=== PATIENT | female | born 1995 | race American Indian/Alaskan Native ===

== ENCOUNTER 2020-01-24 11:48 | Outpatient (CLI) | payer MEDICAID ==
[2020-01-24 12:42] LABS: Basophils # (Auto) 0.2 K/mm3 (0.0-0.1); Basophils % (Auto) 1.3 % (0.0-1.8); Eosinophils # (Auto) 0.2 K/mm3 (0.0-0.4); Eosinophils % (Auto) 1.4 % (0.0-4.3); Hemoglobin 11.1 gm/dl (10.1-14.3); Lymphocytes # (Auto) 2.3 K/mm3 (1.2-5.4); Lymphocytes % (Auto) 18.3 % (13.4-35.0); Mean Corpuscular HGB Conc 33 % (30-34); Mean Corpuscular Volume 76 fl (79-97); Monocytes # (Auto) 0.5 K/mm3 (0.0-0.8); Monocytes % (Auto) 4.3 % (0.0-7.3); Platelet Count 401 K/mm3 (140-440); Red Blood Count 4.45 M/mm3 (3.65-5.03); Red Cell Distribution Width 15.5 % (13.2-15.2)
[2020-01-24 12:55] LABS: % Iron Saturation 19.49 %; Alanine Aminotransferase 7 units/L (7-56); Albumin 3.4 g/dL (3.9-5); Blood Urea Nitrogen 11 mg/dL (7-17); Calcium 9.2 mg/dL (8.4-10.2); Chol/HDL Ratio 2.96 %; HDL Cholesterol 62 mg/dL (40-59); Hemolysis Index 0; Iron 69 ug/dL (37-170); LDL Cholesterol,Direct 117 mg/dL (50-130); Total Iron Binding Capacity 354 mcg/dL (250-450)
[2020-01-24 12:56] LABS: BUN/Creatinine Ratio 22
[2020-01-26 15:11] LABS: Vitamin D, 25-OH, D2 <4 ng/mL
== END 2020-01-24 11:49 | disposition home or self-care (01) ==
LOC: LAB 11:48
PROVIDERS: ATTEND Internal Medicine
DX: E11.9 Type 2 diabetes mellitus without complications (principal); K30 Functional dyspepsia; E66.01 Morbid (severe) obesity due to excess calories
CPT/HCPCS: 36415; 80053; 80061; 82306; 82607; 82728; 83036; 83550; 84443; 85025; 85730

== ENCOUNTER 2020-04-15 08:10 | Day surgery (SDC) | payer MEDICAID ==
[~2020-04-15 08:10] MED LIST: SODIUM CHLORIDE 0.9% 1000 ML 1,000 ML IV SCH
--- NOTE | 2020-04-15 09:06 | Anesthesia Day of Surgery ---
Anesthesia Day of Surgery - Day of Surgery Patient Examined: Yes Patient H&P Reviewed: Yes Patient is NPO: Yes
[2020-04-15] MEDS ORDERED: MIDAZOLAM 2 MG/2 ML INJ ONE (09:11)
--- NOTE | 2020-04-15 09:12 | Anesthesia Consultation ---
Anesthesia Consult and Med Hx Date of service: 04/15/20 - Airway Anesthetic Teeth Evaluation: Good ROM Head & Neck: Adequate Mental/Hyoid Distance: Adequate Mallampati Class: Class II Intubation Access Assessment: Good - Pre-Operative Health Status ASA Pre-Surgery Classification: ASA3 Proposed Anesthetic Plan: MAC - Pulmonary Hx Smoking: No - Cardiovascular System Hx Hypertension: Yes (In the past. Anxious--> BP high now) - Hematic Hx Sickle Cell Disease: No - Other Systems Hx Obesity: Yes
[2020-04-15] MEDS ORDERED: propofoL 200 MG/20 ML VIAL IV ONE ×2 (09:26→09:35)
--- NOTE | 2020-04-15 09:45 | Short Stay Summary ---
Short Stay Documentation Date of service: 04/15/20 - History H&P: obtained from office - Allergies and Medications Current Medications: Allergies pine nut Allergy (Verified 09/14/14 00:35) Swelling shellfish derived Allergy (Verified 09/14/14 00:35) Nausea Active Medications Sodium Chloride (Nacl 0.9% 1000 Ml) 1,000 mls @ 50 mls/hr IV DIRECT ZAID Last Admin: 04/15/20 09:10 Dose: 50 mls/hr Documented by: Midazolam HCl (Midazolam 2 Mg/2 Ml Inj) 2 mg IV PREOP NR Stop: 04/15/20 23:59 Last Admin: 04/15/20 09:20 Dose: 2 mg Documented by: - Brief post op/procedure progress note Date of procedure: 04/15/20 Findings: see dictation Estimated blood loss: none Pathology: list (antral biopsies for h. pylori) Specimen disposition: to lab Condition: stable - Disposition Condition at discharge: Good - Discharge Diagnoses (1) GERD (gastroesophageal reflux disease) Status: Acute Short Stay Discharge Plan Activity: other (no driving for 24 hours) Weight Bearing Status: Full Weight Bearing Diet: regular Follow up with: KYLAH CRZU MD [Primary Care Provider] - 7 Days
--- NOTE | 2020-04-15 09:48 | Operative Report ---
Operative Report Operative Report: Date of procedure: 04/15/2020 Procedure: Esophagogastroduodenoscopy with biopsies for H. pylori in the antrum. Preprocedure diagnosis: Gastroesophageal reflux disease. Post procedure diagnosis: Mild erosive antral gastritis. Lax LES Endoscopist: Dr. Hutchinson Anesthesia: Monitored anesthesia care per anesthesia department Medications: Propofol per anesthesia. Versed 2 mg IV given in preop for anxiety. Estimated blood loss: 0. After careful discussion of the nature and purpose of the procedure as well as details the technique risks benefits and alternatives consent was obtained. The patient was placed in the left lateral decubitus position and medicated per anesthesia. The tip of the Appwapp EQ 570 video scope was passed per orum under direct vision into the esophagus and advanced into the stomach and descending duodenum. The descending duodenum the duodenal bulb and pylorus were sym metrical and normal. The scope was withdrawn into the stomach and the stomach then gently insufflated with air. The antrum revealed scattered shallow erosions. Biopsies were taken for H. pylori assessment. The stomach was further insufflated and the scope was then retroflexed and partially withdrawn. The cardia, fundus, and body of the stomach were within normal limits and easily distensible.The scope was then withdrawn in the forward position. The esophagogastric junction was at 38 cm. The LES appeared lax. The Z-line was sharp. The esophageal body was normal throughout. The procedure was was well tolerated and the patient was observed in recovery. Impressions: Mild erosive antral gastritis. Lax appearing LES. No hiatus hernia or significant esophagitis. Plan: Continue acid suppression therapy. Await pathology to exclude H. pylori. The patient will call the office in 1 week for discussion. Electronically signed: Hector Hutchinson MD
[2020-04-15] MEDS ORDERED: MIDAZOLAM 2 MG/2 ML INJ IV NR (10:00)
[2020-04-15 10:46] VITALS: BP 167/94
--- NOTE | 2020-04-15 16:25 | Post Anesthesia Evaluation ---
- Post Anesthesia Evaluation Patient Participated: Yes Airway Patent: Yes Stable Respiratory Function: Yes Nausea/Vomiting: No Temp > 96.8F: Yes Pain Manageable: Yes Adequeate Hydration: Yes Anesthesia Complications: No Block Receding Appropriately: Not Applicable Patient on Ventilator: No
== END 2020-04-15 10:55 | disposition home or self-care (01) ==
LOC: GIO 08:10
PROVIDERS: ATTEND Internal Medicine Gastroenterology
DX: K21.00 Gastro-esophageal reflux disease with esophagitis, without bleeding (principal); K29.70 Gastritis, unspecified, without bleeding; I10 Essential (primary) hypertension; E66.9 Obesity, unspecified; Z68.43 Body mass index [BMI] 50.0-59.9, adult; Z91.010 Allergy to peanuts; Z79.899 Other long term (current) drug therapy; Z91.013 Allergy to seafood
CPT/HCPCS: 43239; 81025; 88305; 88342; J2250; J2704; J7030

== ENCOUNTER 2020-10-06 07:30 | Inpatient (IN) | payer MEDICAID ==
[2020-10-02 13:04] LABS: Hematocrit 35.1 % (30.3-42.9); Hemoglobin 11.5 gm/dl (10.1-14.3); Mean Corpuscular HGB Conc 33 % (30-34); Mean Corpuscular Volume 79 fl (79-97); Platelet Count 321 K/mm3 (140-440); Red Blood Count 4.42 M/mm3 (3.65-5.03); Red Cell Distribution Width 15.2 % (13.2-15.2)
--- NOTE | 2020-10-02 13:10 | Anesthesia Consultation ---
Anesthesia Consult and Med Hx Date of service: 10/06/20 - Airway Anesthetic Teeth Evaluation: Good ROM Head & Neck: Adequate Mental/Hyoid Distance: Adequate Mallampati Class: Class II Intubation Access Assessment: Good - Pre-Operative Health Status ASA Pre-Surgery Classification: ASA3 Proposed Anesthetic Plan: General - Pulmonary Hx Smoking: No Hx Respiratory Symptoms: No (+2FS. Normal PFTs) Hx Sleep Apnea: No - Cardiovascular System Hx Hypertension: Yes Hx Coronary Artery Disease: No (ETT negative) - Central Nervous System Hx Psychiatric Problems: No - Gastrointestinal Hx Gastroesophageal Reflux Disease: Yes (Occasional; was greater during ) - Endocrine Hx Non-Insulin Dependent Diabetes: No - Hematic Hx Sickle Cell Disease: No - Other Systems Hx Cancer: No Hx Obesity: Yes
[2020-10-02 13:20] LABS: Alanine Aminotransferase 9 units/L (7-56); Albumin 3.7 g/dL (3.9-5); Blood Urea Nitrogen 11 mg/dL (7-17); Hemolysis Index 0
[2020-10-02 13:36] LABS: BUN/Creatinine Ratio 22
[~2020-10-06 07:30] MED LIST changes: +ACETAMINOPHEN IV 1,000 MG/100 ML BOTTLE IV NR; +BUPIVACAINE/PF (0.25%) 2.5 MG/ML 30 ML VIAL INFILTRATI ONE; +ENOXAPARIN 40 MG/0.4 ML INJ SUB-Q NR; +GABAPENTIN 500 MG/10 ML ORAL LIQD PO NR; +LIDOCAINE (2%) 20 MG/1 ML VIAL 20 ML MDV INFILTRATI ONE; +MIDAZOLAM 2 MG/2 ML INJ IV NR; +SCOPOLAMINE TRANSDERMAL PATCH 72 HR TD NR; -SODIUM CHLORIDE 0.9% 1000 ML 1,000 ML IV SCH; +SODIUM CHLORIDE 0.9% IRR 1,500 ML BOTTLE IR ONE; +methOCARBAMOL 1,000 MG in SODIUM CHLORIDE 0.9% 250ML 250 ML IV NR; +metroNIDAZOLE/NS 500 MG/100 ML 500 MG/100 ML BAG IV NR
--- NOTE | 2020-10-06 09:15 | Anesthesia Day of Surgery ---
Anesthesia Day of Surgery - Day of Surgery Patient Examined: Yes Patient H&P Reviewed: Yes Patient is NPO: Yes
[2020-10-06] MEDS: LACTATED RINGERS 1,000 ML IV SCH (09:48)
[2020-10-06] MEDS ORDERED: SCOPOLAMINE TRANSDERMAL PATCH 72 HR TD SCH (10:00)
[2020-10-06] MEDS ORDERED: LIDOCAINE MPF (2%) 20 MG/1 ML VIAL 5 ML ONE (11:25)
[2020-10-06] MEDS ORDERED: ROCURONIUM 50 MG/5 ML INJ IV ONE (11:25)
[2020-10-06] MEDS ORDERED: KETAMINE/STERILE WATER 50 MG/ML SYRINGE ONE ×2 (11:26→13:39)
[2020-10-06] MEDS ORDERED: MAGNESIUM SULFATE 4 GM/100 ML BAG IV ONE (11:27)
[2020-10-06] MEDS ORDERED: PHENYLEPHRINE/NS 1,000 MCG/10 ML SYRINGE (OR USE) IV ONE (11:30)
[2020-10-06] MEDS ORDERED: BUPIVACAINE/PF (0.25%) 2.5 MG/ML 30 ML VIAL INFILTRATI ONE ×2 (11:32→12:44)
[2020-10-06] MEDS ORDERED: LIDOCAINE 1%/EPINEPHRINE 1:100,000 VIAL (20 ML) INFILTRATI ONE (11:33)
[2020-10-06] MEDS ORDERED: MIDAZOLAM 2 MG/2 ML INJ ONE (11:42)
[2020-10-06] MEDS ORDERED: SODIUM CHLORIDE 0.9% IRRIG SOLN 2000 ML IR ONE (12:44)
[2020-10-06] MEDS ORDERED: SODIUM CHLORIDE 0.9% IRR 1,500 ML BOTTLE IR ONE (12:44)
[2020-10-06] MEDS ORDERED: LIDOCAINE 2%/EPINEPHRINE 1:100,000 VIAL (20 ML) INFILTRATI ONE (12:44)
[2020-10-06] MEDS ORDERED: SUGAMMADEX SODIUM 200 MG/2 ML VIAL IV ONE (12:56)
[2020-10-06] MEDS ORDERED: propofoL 200 MG/20 ML VIAL IV ONE ×3 (13:01→13:44)
[2020-10-06] MEDS ORDERED: HYDROmorphone 1 MG/1 ML INJ ONE (14:44)
[2020-10-06] MEDS: HYDROmorphone 1 MG/1 ML INJ IV PRN ×3 (14:45→15:50)
[2020-10-06] MEDS ORDERED: MORPHINE 2 MG/1 ML INJ IV PRN (15:09)
[2020-10-06] MEDS ORDERED: SIMETHICONE 80 MG CHEW TAB PO PRN (15:09)
[2020-10-06] MEDS ORDERED: HYDROmorphone 1 MG/1 ML INJ IV PRN (15:09)
[2020-10-06] MEDS ORDERED: ONDANSETRON 4 MG/2 ML INJ IV PRN (15:09)
[2020-10-06] MEDS ORDERED: METOCLOPRAMIDE 10 MG/2 ML INJ IV PRN (15:09)
[2020-10-06] MEDS ORDERED: hydrALAZINE 20 MG/1 ML INJ IV PRN (15:09)
[2020-10-06] MEDS ORDERED: HYDROcodone/Acetaminophen 7.5-325MG-15ML ORAL LIQD PO PRN (15:09)
[2020-10-06] MEDS ORDERED: LACTATED RINGERS 1,000 ML IV SCH (15:15)
--- NOTE | 2020-10-06 15:20 | Operative Report ---
Operative Report Operative Report: DATE OF PROCEDURE: 10/06/2020 SURGEON: Robinson Gaines M.D. BIOMEDICAL EQUIPMENT SUPPORT SPECIALIST: Angel Colunga CSA MD PREOPERATIVE DIAGNOSIS: Morbid obesity. POSTOPERATIVE DIAGNOSES: Morbid obesity PROCEDURES PERFORMED: 1. Laparoscopic gastric bypass. 2. EGD. ANESTHESIA: General endotracheal tube intubation, TAP block SPECIMENS: None. ESTIMATED BLOOD LOSS: Less than 20 mL. FINDINGS: Normal anatomy. COMPLICATIONS: None. INDICATION: Ms. Meek is a 25-year-old female with history of morbid obesity and htn who is here for bariatric surgery for weight loss. She signed informed consent and expressed understanding of risks and benefits. DESCRIPTION OF PROCEDURE: Patient was brought to the OR suite, laid in supine position. Bilateral lower extremity SCDs were placed. General anesthesia was induced via successful endotracheal tube intubation. Patient's abdomen was prepped and draped in sterile fashion. A veress needle was used to insuflate the abdomen to a pressure of 18 mmHg in the left subcostal region. Using Optiview technique, a 5- mm trocar was placed into the abdominal cavity under direct vision just superior and to the left of the umbilicus. There was noted to be no gross injury to any intraabdominal structures. 12 mm in the right mid abdomen mid clavicular line and three 5-mm trocars in the right upper quadrant, epigastric areas were placed under direct visualization. At this time, the ligament of Treitz identified and followed down approximately 75 cm and the jejunum was transected. The distal segment of jejunum was then traced for approximately 100 cm and a stable [id number] jejunojejunostomy was performed. The common enterotomy was closed with 2 firings of the endoscopic stapler. The mesenteric defect was closed with running Surgidac suture. This anastomosis was found to be patent without kink, obstruction or bleeding. At this time, the patient was placed in steep reverse Trendelenburg position. A liver retractor was placed through the epigastric port to elevate the left lateral lobe of the liver. A small gastric pouch was formed with serial firings of the blue load on a laparoscopic stapler. The Dano limb was then brought in an antegastric antecolic fashion and secured with 2 stay sutures to the gastric pouch. After this, the enterotomies were made with Harmonic scalpel, and a [id number] stapled gastrojejunostomy was performed with a mechanical stapler. After this, a 2-layer running closure using absorbable V-lock suture were done, the first being mucosal approximation prior to completion of the first layer. Then I passed and an EGD scope beyond the anastomosis to act as a stent. The first layer was completed, the second was then performed. After this, the EGD was retracted slightly. A bowel clamp was placed in a proximal Dano limb. The anastomosis was submerged under saline. Via intraluminal EGD insufflation, there was noted be no bubbles in the saline indicating an airtight anastomosis. There was noted to be no obstruction or bleeding intraluminally in the pouch or the anastomosis. At this time, the scope was removed. The saline was aspirated. Tiseel was placed over the anastomosis. All trocars were removed under direct visualization and the abdomen was then desufflated. A TAP block was performed using a total of 60 mL 0.25% Marcaine along bilateral mid axillary lines starting at the subcostal margin at the level of the umbilicus. The 12mm trocar site was closed using POD and a Christopher T homason device for fear that after surgery it become incarcerated. The skin incisions were closed with 4-0 Monocryl followed by Dermabond dressings. Patient was awoken and taken to recovery in stable condition. All counts were correct.
--- NOTE | 2020-10-06 17:47 | Post Anesthesia Evaluation ---
- Post Anesthesia Evaluation Patient Participated: Yes Airway Patent: Yes Stable Respiratory Function: Yes Nausea/Vomiting: No Temp > 96.8F: Yes Pain Manageable: Yes Adequeate Hydration: Yes Anesthesia Complications: No
[2020-10-06] MEDS ORDERED: diphenhydrAMINE 50 MG/ML VIAL IV NR (19:11)
[2020-10-06] MEDS ORDERED: FAMOTIDINE 20 MG/2 ML INJ IV NR (19:11)
[2020-10-06] MEDS: ACETAMINOPHEN IV 1,000 MG/100 ML BOTTLE IV SCH (21:32)
[2020-10-06] MEDS: KETOROLAC 30 MG/1 ML INJ IV SCH (21:43)
[2020-10-06] MEDS: ceFAZolin/NS 1 GM/50 ML 1 GM/50 ML BAG IV SCH (21:43)
[2020-10-06] MEDS: metroNIDAZOLE/NS 500 MG/100 ML 500 MG/100 ML BAG IV SCH (21:44)
[2020-10-07] MEDS: ACETAMINOPHEN IV 1,000 MG/100 ML BOTTLE IV SCH ×2 (00:02→03:47)
[2020-10-07] MEDS: KETOROLAC 30 MG/1 ML INJ IV SCH ×3 (01:51→10:19)
[2020-10-07] MEDS: metroNIDAZOLE/NS 500 MG/100 ML 500 MG/100 ML BAG IV SCH ×2 (03:43→10:18)
[2020-10-07] MEDS: ceFAZolin/NS 1 GM/50 ML 1 GM/50 ML BAG IV SCH (03:46)
[2020-10-07] MEDS: PANTOPRAZOLE 40 MG INJ IV SCH ×2 (03:47→10:19)
[2020-10-07 04:53] LABS: Basophils % (Auto) 0.2 % (0.0-1.8); Hematocrit 34.9 % (30.3-42.9); Hemoglobin 11.7 gm/dl (10.1-14.3); Lymphocytes # (Auto) 1.4 K/mm3 (1.2-5.4); Lymphocytes % (Auto) 11.9 % (13.4-35.0); Mean Corpuscular HGB Conc 33 % (30-34); Mean Corpuscular Volume 80 fl (79-97); Monocytes # (Auto) 0.8 K/mm3 (0.0-0.8); Monocytes % (Auto) 6.8 % (0.0-7.3); Platelet Count 366 K/mm3 (140-440); Red Blood Count 4.39 M/mm3 (3.65-5.03); Red Cell Distribution Width 15.7 % (13.2-15.2)
[2020-10-07 05:09] LABS: Alanine Aminotransferase 15 units/L (7-56); Albumin 3.4 g/dL (3.9-5); Blood Urea Nitrogen 8 mg/dL (7-17); Calcium 9.5 mg/dL (8.4-10.2); Hemolysis Index 0
[2020-10-07 05:12] LABS: BUN/Creatinine Ratio 16
[2020-10-07] MEDS: LACTATED RINGERS 1,000 ML IV SCH (06:31)
--- OUTSIDE RECORDS SUMMARY | 2020-10-07 06:51 | External Medical Summary ---
:1995 Author Organization [facility], [facility] Address [address] [place] [address] Care Team Providers Name Role Phone Robinson Gaines Unavailable [phone] PROBLEMS Type Condition ICD9-CM GUC52-[id number] Onset Condition W/U Status Risk SNOM ED Notes Code Code Dates Status Code Problem Dietary Z71.3 Active confirmed 141690730 counseling and surveillance Problem Essential I10 Active confirmed 08481745 (primary) hypertension Problem Functional K30 Active confirmed 2801395 dyspepsia Problem Gastro-esopha K21.9 Active confirmed 780966 005 geal reflux disease without esophagitis Problem Sleep G47.9 Active confirmed 00285883 disorder, unspecified Problem Major F32.9 Active confirmed 21896081 depressive disorder, single episode, unspecified Problem Morbid E66.01 Active confirmed 401135423 (severe) obesity due to excess calories Problem Body mass Z68.43 Active confirmed 260596467 index [BMI] 50.0-59.9, adult ALLERGIES Allergen (clinical Drug/Non Drug Reaction Allergy Type Onset Date S tatus drug ingredient) Allergy documented on EMR peanuts shortness of Non Drug Active breath Allergy Shellfish shellfish vomiting Non Drug Active Allergy ENCOUNTERS from 1993 to 2020-10-03 Encounter Location Date Provider Diagnosis [facility] Sep, Robinson Gaines Morbi d (severe) [address] obesity due to excess of [facility] [place], [place] calorie s E66.01 [place] [address] Essential (prim beatriz) hypertension I1 0 IMMUNIZATIONS No Information SOCIAL HISTORY Sex Assigned At : Social History Observation Description Sex Assigned At Unknown REASON FOR REFERRAL from 1993 to 2020-10-03 Diagnosis 1 Morbid (severe) obesity due to excess calories (E66.01) Diagnosis 2 Essential (primary) hyperten doroteo (I10) Diagnosis 3 Functional dyspepsia (K30) Diagnosis 4 Sleep disorder, unspecified (G47.9) Diagnosis 5 Major depressive disorder, s edelmira episode, unspecified (F32.9) Diagnosis 6 Body mass index [BMI] 50.0-5 9.9, adult (Z68.43) Diagnosis 7 Gastro-esophageal reflux dis ease without esophagitis (K21.9) Diagnosis 8 Dietary counseling and surve illance (Z71.3) Diagnosis 9 Pain in unspecified knee (M2 5.569) Referral Organization [facility] Referring Provider First Name Robinson Referring Provider Last Name Liana Referring Provider Specialty Surgery Referred Provider [facility], - Referral Priority Routine VITAL SIGNS Height 64 in Sep, Weight 297.7 lbs Sep, Temperature 97.8 degrees Fahrenheit Sep, BMI 51.09 kg/m2 Sep, Blood pressure systolic 130 mm Hg Sep, Blood pressure diastolic 85 mm Hg Sep, MEDICATIONS Medication SIG (Take, Route, Notes Start Date End Date Status Frequency, Duration) Sprintec 28 0.25-35 1 tablet Orally Once a Active MG-MCG day for 28 day(s) HYDROcodone-Acetaminophe 15 ml as needed Orally Sep,Sep, Active n 7.5-325 MG/15ML every 6 hrs for 7 days NexIUM 40 MG 1 capsule Orally Once Sep, Active a day for 30 day(s) Labetalol HCl 200 MG 1 tablet Orally Twice Active a day for 30 day(s) Ondansetron 4 MG 1-2 tablet on the Sep, Active tongue and allow to dissolve Orally q 4-6 hours prn nausea for 30 day(s) PROCEDURES No Information RESULTS No Results REASON FOR VISIT PreOp Bypass MEDICAL (GENERAL) HISTORY Type Description Date Medical History Morbid (severe) obesity due to excess ca lories Medical History Essential (primary) hypertension Medical History Major depressive disorder, single episod e, unspecified Medical History Functional dyspepsia Medical History Sleep disorder, unspecified Medical History Body mass index [BMI] 50.0-59.9, adult Surgical History D and C 09/2017 Surgical History D and C 10/2017 Surgical History Knee repair 04/2018 Surgical History 09/11/2019 Hospitalization History as above Goals Section No Information Health Concerns No Information MEDICAL EQUIPMENT No Information MENTAL STATUS No Information FUNCTIONAL STATUS No Information ASSESSMENTS Encounter Date Diagnosis Assessment Notes Treatment Notes Treatm ent Clinical Notes Sep, Morbid (severe) An hour was spent obesity due to with patient excess calories reinforcing diet, (ICD-10 - E66.01) vitamin requirements and lifestyle education, A quiz was administered and reviewed to verify understanding of intended procedure and post operative care. Consent forms were reviewed with patient and signed answering all questions, Pre-operative labs were ordered. Sep, Essential (primary) Should resolve or hypertension greatly improve (ICD-10 - I10) with weight loss after bariatric surgery PLAN OF TREATMENT Medication Medication Name Sig Start Date Stop Date Ondansetron 4 MG 1-2 tablet on the tongue and Sep, allow to dissolve Orally q 4-6 hours prn nausea for 30 day(s) NexIUM 40 MG 1 capsule Orally Once a day Sep, for 30 day(s) HYDROcodone-Acetaminophen 15 ml as needed Orally every Sep, 2 021 Sep, 7.5-325 MG/15ML 6 hrs for 7 days Treatment Notes Assessment Notes Clinical Notes Morbid (severe) obesity due to An hour was spent with patien t excess calories reinforcing diet, vitamin requirements and lifestyle education, A quiz was administered and reviewed to verify understanding of intended procedure and post operative care. Consent forms were reviewed with patient and signed answering all questions, Pre-operative labs were ordered. Essential (primary) hypertension Should resolve or greatly i mprove with weight loss after bariatric surgery Referrals Referral Date Details Next Appt Details for surgery Reason: Provider Name:Robinson Gaines, 2020-08-3 0 07:30:00 AM, [address], [place], [address], Insurance Providers Payer Name Payer Address Payer Insured Name Patient Coverage Co verage End Phone Relationship to Start Date Rick e Insured [employer] [address] [address] [phone] [place] self /[facility] [address] [facility] [id number]
[2020-10-07] MEDS ORDERED: LOSARTAN 50 MG TAB PO SCH (10:00)
[2020-10-07] MEDS ORDERED: ENOXAPARIN 40 MG/0.4 ML INJ SUB-Q SCH (10:00)
--- NOTE | 2020-10-07 11:16 | Discharge Summary ---
Providers - Providers Date of Admission: 10/06/20 08:50 Date of discharge: 10/07/20 Attending physician: DESMOND DAVIS MD 10/06/20 15:11 Physical Therapy Evaluation and Treat [CONS] Routine Comment: Reason For Exam: post op bariatric surgery Primary care physician: KYLAH CRUZ Hospitalization Reason for admission: Observation status post laparoscopic gastric bypass Condition: Good Procedures: Laparoscopic gastric bypass Hospital course: Patient was admitted after an uneventful laparoscopic gastric bypass. She remained afebrile and stable. Her pain was controlled and she was ambulating without difficulty. She was tolerating clear liquids. She was discharged to [facility] on postoperative day 1 showing no clinical signs of leak or bleeding. Disposition: 01 HOME / SELF CARE / HOMELESS Final Discharge Diagnosis (Prints w/discharge instructions): Morbid obesity, hypertension Core Measure Documentation - Palliative Care Palliative Care/ Comfort Measures: Not Applicable - Core Measures Any of the following diagnoses?: none Exam - Constitutional Vitals: Temp Pulse Resp BP Pulse Ox 97.9 F 98 H 18 173/107 98 10/07/20 04:07 10/07/20 04:07 10/07/20 04:07 10/07/20 04:07 10/07/20 08:28 General appearance: Present: no acute distress, well-nourished, obese - Respiratory Respiratory effort: normal - Cardiovascular Heart Sounds: Present: S1 & S2 - Extremities Extremities: no ischemia - Abdominal General gastrointestinal: Present: other (Incisions clean dry and intact, appropriately tender to palpation) Plan Activity: advance as tolerated Diet: clear liquids Wound: open to air, keep clean and dry Follow up with: KYLAH CRUZ MD [Primary Care Provider] - 7 Days
[2020-10-07 17:16] VITALS: BP 148/78
== END 2020-10-07 15:40 | disposition home or self-care (01) | DRG 621 ==
LOC: 3A 08:50 → 4A 15:55
PROVIDERS: ADMIT Surgery; ATTEND Surgery
PROC: 0D164ZA Bypass Stomach to Jejunum, Percutaneous Endoscopic Approach (ICD-10-PCS; principal; 2020-10-06)
PROC: 0DJ08ZZ Inspection of Upper Intestinal Tract, Via Natural or Artificial Opening Endoscopic (ICD-10-PCS; 2020-10-06)
DX: E66.01 Morbid (severe) obesity due to excess calories (principal); Z68.43 Body mass index [BMI] 50.0-59.9, adult; Z20.822 Contact with and (suspected) exposure to COVID-19; Z91.010 Allergy to peanuts; Z91.013 Allergy to seafood; Z91.09 Other allergy status, other than to drugs and biological substances; I10 Essential (primary) hypertension; K21.9 Gastro-esophageal reflux disease without esophagitis
CPT/HCPCS: 36415; 80053; 82962; 84703; 85025; 85027; G0378; A4217; C9113; J0131; J0690; J1170; J1200; J1650; J1885; J2250; J2370; J2704; J3475; J3490; J7120; U0003

== ENCOUNTER 2021-04-01 15:22 | Emergency (ER) | payer MEDICAID ==
[2021-04-01] MEDS ORDERED: SODIUM CHLORIDE 0.9% 1000 ML 1,000 ML IV ONE (15:53)
[2021-04-01] MEDS ORDERED: SODIUM CHLORIDE 0.9% 1000 ML IV SOLN IV ONE (15:59)
[2021-04-01] MEDS ORDERED: ACETAMINOPHEN 325 MG TAB PO ONE (16:00)
[2021-04-01] MEDS ORDERED: ONDANSETRON 4 MG/2 ML INJ IV ONE (16:00)
[2021-04-01] MEDS ORDERED: methylPREDNISolone Sod Succinate 125 MG/2 ML INJ IV ONE (16:08)
--- NOTE | 2021-04-01 16:26 | Emergency Department Report ---
<REGINALD LOMELI - Last Filed: 04/01/21 19:21> - General Chief complaint: Weakness Stated complaint: WEAKNESS/TACHYCARDIA Time Seen by Provider: 04/01/21 15:52 Source: EMS Mode of arrival: Ambulatory Limitations: No Limitations - History of Present Illness Initial comments: 25-year-old female the past medical history obesity, hypertension, gastric bypass September 2020 presents to the hospital complaining of feeling unwell since receiving her implanted control device 3 days ago. Patient initially felt dizzy and weak. Yesterday she vomited and started having multiple episodes of diarrhea. Patient states she had a fever of 103.4 prior to ED arrival. She is vaccinated for COVID denies cough, shortness of breath, or dysuria. She complains of generalized intermittent abdominal cramps worse with palpation. Patient presents to the hospital with significantly elevated heart rate but denies sensation of palpitations. Pt is vaccinated for Covid Dr Gaines is her surgeon Severity scale (0 -10): 0 - Related Data Home Medications Medication Instructions Recorded Confirmed Last Taken Losartan/Hydrochlorothiazide 1 each PO DAILY 10/01/20 04/01/21 10/06/20 [Losartan-Hctz 50-12.5 mg Tab] Norgestimate-Ethinyl Estradiol 1 tab PO DAILY 10/01/20 04/01/21 Unknown [Sprintec 28 Day Tablet] Allergies Allergy/AdvReac Type Severity Reaction Status Date / Time pine nut Allergy Swelling Verified 04/01/21 15:26 shellfish derived Allergy Nausea Verified 04/01/21 15:26 lisinopril AdvReac Unknown Verified 04/01/21 15:26 ED Review of Systems Comment: All other systems reviewed and negative ED Past Medical Hx - Past Medical History Hx Hypertension: Yes Hx GERD: Yes Hx Sickle Cell Disease: No Additional medical history: OBESITY - Surgical History Additional Surgical History: Gastric bypass surgery September 2020 - Social History Smoking Status: Never Smoker Substance Use Type: None - Medications Home Medications: Home Medications Medication Instructions Recorded Confirmed Last Taken Type Losartan/Hydrochlorothiazide 1 each PO DAILY 10/01/20 04/01/21 10/06/20 History [Losartan-Hctz 50-12.5 mg Tab] Norgestimate-Ethinyl Estradiol 1 tab PO DAILY 10/01/20 04/01/21 Unknown History [Sprintec 28 Day Tablet] ED Physical Exam - General Limitations: No Limitations - Other Other exam information: General: No acute distress Head: Atraumatic Eyes: normal appearance Neck: Normal appearance, no midline tenderness Chest: Clear to auscultation bilaterally CV: Tachycardic regular rhythm Abdomen: Soft, normal bowel sounds, mild epigastric tenderness to palpation, nondistended, no rebound or guarding Back: Normal inspection Extremity: Normal inspection, full range of motion Neuro: Alert O x 3, no facial asymmetry, speech clear, no gross motor sensory deficit Psych: Appropriate behavior Skin: No rash ED Course - Reevaluation(s) Reevaluation #1: 04/01/21 19:16 after 2 L hr 112 04/01/21 19:21 pt reports feeling better ED Medical Decision Making - Lab Data Result diagrams: 04/01/21 16:15 04/01/21 16:15 - EKG Data -: EKG Interpreted by Me EKG shows normal: sinus rhythm, ST-T waves (no stemi) Rate: tachycardia (147) - Medical Decision Making hr improving with IV and meds sepsis labs neg ct result pending Ua pending DR Reggie Adams to f/u and dispo ED Disposition Clinical Impression: Viral syndrome Disposition: 01 HOME / SELF CARE / HOMELESS Condition: Stable Instructions: Viral Illness, Adult Referrals: PRIMARY CARE, [Primary Care Provider] - 3-5 Days Forms: Work/School Release Form(ED) <KEISHA ADAMS - Last Filed: 04/01/21 20:27> ED Review of Systems ROS: Stated complaint: WEAKNESS/TACHYCARDIA Other details as noted in HPI ED Course Vital Signs 04/01/21 04/01/21 04/01/21 15:23 15:38 15:44 Temperature 98.9 F 99.9 F H Pulse Rate 143 H 147 H Respiratory 20 20 Rate Blood Pressure 128/86 Blood Pressure 133/75 128/86 [Right] O2 Sat by Pulse 99 99 Oximetry 04/01/21 04/01/21 04/01/21 15:47 15:50 16:00 Temperature 99.9 F H Pulse Rate 147 H 148 H 148 H Respiratory 20 23 Rate Blood Pressure 128/86 145/85 Blood Pressure [Right] O2 Sat by Pulse 99 99 Oximetry 04/01/21 04/01/21 04/01/21 16:30 17:00 17:30 Temperature Pulse Rate 130 H 129 H 124 H Respiratory 16 30 H 18 Rate Blood Pressure 140/86 119/70 126/74 Blood Pressure [Right] O2 Sat by Pulse 100 99 100 Oximetry 04/01/21 04/01/21 04/01/21 17:48 18:00 18:30 Temperature 98.0 F Pulse Rate 123 H 122 H 117 H Respiratory 23 17 15 Rate Blood Pressure 126/77 130/78 Blood Pressure 136/79 [Right] O2 Sat by Pulse 99 98 99 Oximetry 04/01/21 04/01/21 04/01/21 19:10 19:15 19:30 Temperature 98.1 F Pulse Rate 116 H 110 H Respiratory 24 24 Rate Blood Pressure 128/70 114/71 Blood Pressure 114/71 [Right] O2 Sat by Pulse 100 99 99 Oximetry 04/01/21 20:00 Temperature Pulse Rate 106 H Respiratory 24 Rate Blood Pressure 104/71 Blood Pressure [Right] O2 Sat by Pulse 98 Oximetry - Reevaluation(s) Reevaluation #2: 04/01/21 20:27 Vital Signs - 24 hr 04/01/21 04/01/21 04/01/21 15:23 15:38 15:44 Temperature 98.9 F 99.9 F H Pulse Rate 143 H 147 H Respiratory 20 20 Rate Blood Pressure 128/86 Blood Pressure 133/75 128/86 [Right] O2 Sat by Pulse 99 99 Oximetry 04/01/21 04/01/21 04/01/21 15:47 15:50 16:00 Temperature 99.9 F H Pulse Rate 147 H 148 H 148 H Respiratory 20 23 Rate Blood Pressure 128/86 145/85 Blood Pressure [Right] O2 Sat by Pulse 99 99 Oximetry 04/01/21 04/01/21 04/01/21 16:30 17:00 17:30 Temperature Pulse Rate 130 H 129 H 124 H Respiratory 16 30 H 18 Rate Blood Pressure 140/86 119/70 126/74 Blood Pressure [Right] O2 Sat by Pulse 100 99 100 Oximetry 04/01/21 04/01/21 04/01/21 17:48 18:00 18:30 Temperature 98.0 F Pulse Rate 123 H 122 H 117 H Respiratory 23 17 15 Rate Blood Pressure 126/77 130/78 Blood Pressure 136/79 [Right] O2 Sat by Pulse 99 98 99 Oximetry 04/01/21 04/01/21 04/01/21 19:10 19:15 19:30 Temperature 98.1 F Pulse Rate 116 H 110 H Respiratory 24 24 Rate Blood Pressure 128/70 114/71 Blood Pressure 114/71 [Right] O2 Sat by Pulse 100 99 99 Oximetry 04/01/21 20:00 Temperature Pulse Rate 106 H Respiratory 24 Rate Blood Pressure 104/71 Blood Pressure [Right] O2 Sat by Pulse 98 Oximetry ED Medical Decision Making - Lab Data Result diagrams: 04/01/21 16:15 04/01/21 16:15 - Medical Decision Making I evaluated patient. Patient feels much better. Tachycardia has mostly resolved. Repeat heart rate 102 bpm. Patient presents with fever diarrhea. Young daughter also had loose stools. Differential diagnosis includes food poisoning, influenza rotavirus. CT revealed mesenteric lymph nodes which will correspond with viral syndrome. Patient Name: SCAR PERALTA Gender: Female Date of : 1995 Referring Provider: REGINALD LOMELI Organization: [facility] Accession Number: [id number] Requested Date: April 01, 2021 17:56 Report Status: Final Requested Procedure: 1 Procedure Description: CT abdomen pelvis w con Modality: CT Findings Reporting MD: Isidoro Mckeon Dictation Time: April 01, 2021 18:17 Learning Administrator: Not available Pouch Maker Date: CT ABDOMEN AND PELVIS WITH CONTRAST INDICATION / CLINICAL INFORMATION: n,v, diarrhea, history of gastric bypass. TECHNIQUE: Axial CT images were obtained through the abdomen and pelvis after 100 cc Omnipaque [address] scans at this location are performed using CT dose reduction for ALARA by means of automated exposure control. COMPARISON: None available. FINDINGS: LOWER CHEST: No significant abnormality of the imaged chest. LIVER: No significant abnormality. GALLBLADDER: No significant abnormality. BILE DUCTS: No significant abnormality. SPLEEN: No significant abnormality. PANCREAS: No significant abnormality. ADRENALS: No significant abnormality. RIGHT KIDNEY / URETER: No significant abnormality. LEFT KIDNEY / URETER: No significant abnormality. STOMACH / DUODENUM / SMALL BOWEL: Postoperative changes from bariatric surgery. No acute findings COLON: No significant abnormality. APPENDIX: No significant abnormality. PERITONEUM: No free air or free fluid are present within the abdomen or pelvis. LYMPH NODES: Borderline to minimally enlarged mesenteric lymph nodes. Nonspecific finding. AORTA / ARTERIES: No significant abnormality. IVC / VEINS: No significant abnormality. URINARY BLADDER: No significant abnormality. REPRODUCTIVE ORGANS: No significant abnormality. ADDITIONAL ABDOMINAL/PELVIC FINDINGS: None. SKELETAL SYSTEM: No significant abnormality. IMPRESSION: 1. Borderline to minimally enlarged mesenteric lymph nodes. Nonspecific finding that could reflect evidence of mesenteric adenitis or other reactive process. 2. Otherwise no acute findings within the abdomen and pelvis. Signer Name: Isidoro Mckeon II, MD Critical care attestation.: If time is entered above; I have spent that time in minutes in the direct care of this critically ill patient, excluding procedure time. ED Disposition Is pt being admited?: No Does the pt Need Aspirin: No
[2021-04-01 16:41] LABS: Basophils % (Auto) 0.3 % (0.0-1.8); Hematocrit 40.9 % (30.3-42.9); Hemoglobin 13.6 gm/dl (10.1-14.3); Lymphocytes # (Auto) 0.9 K/mm3 (1.2-5.4); Mean Corpuscular HGB Conc 33 % (30-34); Mean Corpuscular Volume 78 fl (79-97); Monocytes # (Auto) 0.6 K/mm3 (0.0-0.8); Monocytes % (Auto) 5.2 % (0.0-7.3); Platelet Count 405 K/mm3 (140-440); Red Blood Count 5.25 M/mm3 (3.65-5.03); Red Cell Distribution Width 14.9 % (13.2-15.2)
[2021-04-01 16:55] LABS: Alanine Aminotransferase 34 units/L (7-56); Albumin 3.9 g/dL (3.9-5); Blood Urea Nitrogen 15 mg/dL (7-17); Calcium 9.7 mg/dL (8.4-10.2); Hemolysis Index 50
[2021-04-01 16:57] LABS: BUN/Creatinine Ratio 25
--- NOTE | 2021-04-01 17:08 | XRay Report ---
CHEST 1 VIEW 04/01/2021 4:49 PM INDICATION / CLINICAL INFORMATION: fever, tachy, weakness. COMPARISON: 09/14/2014 FINDINGS: SUPPORT DEVICES: None. HEART / MEDIASTINUM: No significant abnormality. LUNGS / PLEURA: No significant pulmonary or pleural abnormality. No pneumothorax. ADDITIONAL FINDINGS: No significant additional findings. IMPRESSION: 1. No acute findings. Signer Name: Mahesh Khanna DO Signed: 04/01/2021 5:04 PM Workstation Name: [id number]
[2021-04-01] MEDS ORDERED: SODIUM CHLORIDE 0.9% 1000 ML 1,000 ML ONE (19:01)
--- NOTE | 2021-04-01 19:21 | Cat Scan Report ---
CT ABDOMEN AND PELVIS WITH CONTRAST INDICATION / CLINICAL INFORMATION: n,v, diarrhea, history of gastric bypass. TECHNIQUE: Axial CT images were obtained through the abdomen and pelvis after 100 cc Omnipaque [address] scans at this location are performed using CT dose reduction for ALARA by means of automated exposure control. COMPARISON: None available. FINDINGS: LOWER CHEST: No significant abnormality of the imaged chest. LIVER: No significant abnormality. GALLBLADDER: No significant abnormality. BILE DUCTS: No significant abnormality. SPLEEN: No significant abnormality. PANCREAS: No significant abnormality. ADRENALS: No significant abnormality. RIGHT KIDNEY / URETER: No significant abnormality. LEFT KIDNEY / URETER: No significant abnormality. STOMACH / DUODENUM / SMALL BOWEL: Postoperative changes from bariatric surgery. No acute findings COLON: No significant abnormality. APPENDIX: No significant abnormality. PERITONEUM: No free air or free fluid are present within the abdomen or pelvis. LYMPH NODES: Borderline to minimally enlarged mesenteric lymph nodes. Nonspecific finding. AORTA / ARTERIES: No significant abnormality. IVC / VEINS: No significant abnormality. URINARY BLADDER: No significant abnormality. REPRODUCTIVE ORGANS: No significant abnormality. ADDITIONAL ABDOMINAL/PELVIC FINDINGS: None. SKELETAL SYSTEM: No significant abnormality. IMPRESSION: 1. Borderline to minimally enlarged mesenteric lymph nodes. Nonspecific finding that could reflect ev idence of mesenteric adenitis or other reactive process. 2. Otherwise no acute findings within the abdomen and pelvis. Signer Name: Isidoro Mckeon II, MD Signed: 04/01/2021 7:17 PM Workstation Name: [id number]
[2021-04-01 20:10] VITALS: BP 104/71
[2021-04-01 20:12] LABS: Bilirubin,Urine NEG (Negative); Blood,Urine SM (Negative); Color,Urine Straw (Yellow); Mucus,Urine 1+ /HPF; Protein,Urine <15 mg/dL mg/dL (Negative); Urobilinogen,Urine < 2.0 mg/dL (<2.0)
--- NOTE | 2021-04-02 10:25 | Electrocardiograph Report ---
[facility] Test Date: 2021-04-01 Test Time: 15:35:57 Pat Name: SCAR PERALTA Department: Room: Gender: F [employer] Clerk: ILIANA : 1995 Requested By: REGINALD LOMELI Order Number: [id number] Reading MD: Juan Carlos Mac Measurements Intervals [place] Rate: 147 P: 66 TN: 143 QRS: 18 QRSD: 77 T: -45 QT: 255 QTc: 399 Interpretive Statements Sinus tachycardia No previous ECG available for comparison Electronically Signed On 04-02-2021 10:25:37 EST by Juan Carlos Mac
== END 2021-04-01 21:23 | disposition home or self-care (01) ==
LOC: ED 15:22
DX: B34.9 Viral infection, unspecified (principal); I10 Essential (primary) hypertension; K21.9 Gastro-esophageal reflux disease without esophagitis; Z91.018 Allergy to other foods; Z91.013 Allergy to seafood; Z91.09 Other allergy status, other than to drugs and biological substances
CPT/HCPCS: 36415; 71045; 74177; 80053; 81001; 82140; 83735; 84439; 84443; 84484; 84703; 85025; 85730; 87040; 93005; 93010; 96361; 96374; 99285; J2405; J7030; Q9967; Q0162

== ENCOUNTER → 2021-08-20 | Emergency (ER) | payer MEDICAID ==
[2021-08-20 16:59] VITALS: BP 152/93
== END ==
LOC: ED 16:51
DX: R51.9 Headache, unspecified (principal); Z53.21 Procedure and treatment not carried out due to patient leaving prior to being seen by health care provider

== ENCOUNTER 2021-08-21 09:07 | Emergency (ER) | payer MEDICAID ==
[2021-08-21 09:21] VITALS: BP 152/88
[2021-08-21 11:04] LABS: Basophils # (Auto) 0.1 K/mm3 (0.0-0.1); Basophils % (Auto) 0.7 % (0.0-1.8); Eosinophils # (Auto) 0.1 K/mm3 (0.0-0.4); Eosinophils % (Auto) 1.5 % (0.0-4.3); Hematocrit 37.8 % (30.3-42.9); Hemoglobin 12.1 gm/dl (10.1-14.3); Lymphocytes # (Auto) 1.7 K/mm3 (1.2-5.4); Lymphocytes % (Auto) 18.1 % (13.4-35.0); Mean Corpuscular HGB Conc 32 % (30-34); Mean Corpuscular Volume 78 fl (79-97); Monocytes # (Auto) 0.6 K/mm3 (0.0-0.8); Monocytes % (Auto) 6.3 % (0.0-7.3); Platelet Count 395 K/mm3 (140-440); Red Blood Count 4.83 M/mm3 (3.65-5.03); Red Cell Distribution Width 15.1 % (13.2-15.2)
[2021-08-21 12:00] LABS: Alanine Aminotransferase 15 units/L (7-56); Albumin 4.2 g/dL (3.9-5); Blood Urea Nitrogen 9 mg/dL (7-17); Calcium 9.6 mg/dL (8.4-10.2); Hemolysis Index 0
[2021-08-21 12:09] LABS: BUN/Creatinine Ratio 15
--- NOTE | 2021-08-21 12:13 | Event Note ---
ED Screening Note ED Screening Note: pt comes to er for fatigue and brain fog for 1 week pmh htn anxiety depression psh g bypass rx home vitaimins losartan hctz norvasc This initial assessment/diagnostic orders/clinical plan/treatment(s) is/are subject to change based on patients health status, clinical progression and re- assessment by fellow clinical providers in the ED. Further treatment and workup at subsequent clinical providers discretion. Patient/guardian urged not to elope from the ED as their condition may be serious if not clinically assessed and managed. Initial orders include: labs/ua ordered
[2021-08-21 12:50] LABS: Bilirubin,Urine NEG (Negative); Blood,Urine NEG (Negative); Color,Urine Yellow (Yellow); Protein,Urine <15 mg/dL mg/dL (Negative); Urobilinogen,Urine < 2.0 mg/dL (<2.0)
[2021-08-21 12:51] LABS: Mucus,Urine FEW /HPF; RBC,Urine < 1.0 /HPF (0.0-6.0); WBC,Urine < 1.0 /HPF (0.0-6.0)
[2021-08-21 13:10] LABS: HCG Qualitative,Urine Negative (Negative)
== END 2021-08-23 10:57 | disposition left against medical advice (07) ==
LOC: ED 09:07
DX: R51.9 Headache, unspecified (principal); Z53.21 Procedure and treatment not carried out due to patient leaving prior to being seen by health care provider
CPT/HCPCS: 36415; 80053; 81001; 81025; 83690; 85025